=== PATIENT | female | born 1995 | race Two or more races ===

== ENCOUNTER 2017-02-28 15:49 | Outpatient (CLI) | payer OTHER ==
[2017-03-08] MEDS ORDERED: OXYC-302 PO (11:14)
[2017-03-08] MEDS ORDERED: IBUP-1222 PO (11:14)
== END 2017-02-28 17:18 | disposition home or self-care (01) ==
LOC: LDOP 15:49
PROVIDERS: ATTEND Specialist
DX: O62.9 Abnormality of forces of labor, unspecified (principal); Z3A.38 38 weeks gestation of pregnancy
CPT/HCPCS: 59025; 99201; G0463